=== PATIENT | male | born 2000 | race Two or more races ===

== ENCOUNTER 2021-04-21 00:03 | Emergency (ER) | payer SELFPAY ==
[~2021-04-21] VITALS: Ht 185.4 cm; Wt 62.1 kg
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
[2021-04-21] MEDS ORDERED: OLANZAPINE 10 MG VIAL IM ONE ×2 (00:17→00:30)
[2021-04-21] MEDS ORDERED: diphenhydrAMINE HCL 50 MG/ML VIAL ONE (00:17)
--- NOTE | 2021-04-21 00:25 | NUR ---
TECHNICAL INSTRUCTOR COURSE DEVELOPER AT [facility] FOR BLOOD DRAW
[2021-04-21] MEDS ORDERED: diphenhydrAMINE HCL 50 MG/ML VIAL IM ONE (00:30)
[2021-04-21 00:37] LABS: BASOPHILS # (AUTO) 0.1 /CMM (0.0-0.2); BASOPHILS % (AUTO) 0.6 % (0.0-2.0); EOSINOPHILS % (AUTO) 0.1 % (0.0-6.0); HEMATOCRIT 45 % (39-51); LYMPHOCYTES # (AUTO) 1.7 /CMM (0.8-4.8); LYMPHOCYTES % (AUTO) 13.3 % (20.0-44.0); MEAN CORPUSCULAR HGB CONC 34 g/dl (31.0-36.0); MEAN CORPUSCULAR VOLUME 91 fL (80-96); NEUTROPHILS # (AUTO) 9.7 /CMM (1.8-8.9); PLATELET COUNT (AUTO) 308 /CMM (150-450); RED BLOOD CELL COUNT(AUTO) 4.92 MIL/uL (4.5-6.0); WHITE BLOOD COUNT (AUTO) 12.4 K/uL (4.3-11.0)
[2021-04-21 00:47] LABS: CALCIUM, SERUM 9.2 mg/dL (8.5-10.1); CARBON DIOXIDE 23 mmol/L (21-32); CHLORIDE 103 mmol/L (98-107); CREATININE 0.7 mg/dL (0.6-1.3); GLUCOSE 89 mg/dL (74-106); POTASSIUM 3.6 mmol/L (3.5-5.1); SODIUM SERUM 138 mmol/L (136-145); UREA NITROGEN, BLOOD 17 mg/dL (7-18)
[2021-04-21 00:53] LABS: ALANINE AMINOTRANSFERASE 30 U/L (12-78); ALBUMIN 4.1 g/dL (3.4-5.0); ALKALINE PHOSPHATASE 103 U/L (46-116); ASPARTATE AMINOTRANSFERASE 37 U/L (15-37); BILIRUBIN,DIRECT 0.2 mg/dL (0.0-0.2); BILIRUBIN,TOTAL 0.8 mg/dL (0.2-1.0); TOTAL PROTEIN, SERUM 7.6 g/dL (6.4-8.2)
[2021-04-21 00:57] LABS: ACETAMINOPHEN < 0 ug/ml (10-30); ALCOHOL, BLOOD < 0 mg/dL (0-0)
--- NOTE | 2021-04-21 01:22 | NUR ---
PT UNABLE TO PROVIDE URINE SAMPLE AT THIS TIME. MD MCCONNELL
[2021-04-21] MEDS ORDERED: OLAN10TA3 PO (04:53)
--- NOTE | 2021-04-21 05:20 | NUR ---
PT AWAKE. [id number]. AMBULATORY WITH STEADY GAIT. DENIES SI/HI. AWARE
[2021-04-21 05:32] VITALS: BP 125/76
--- NOTE | 2021-04-21 05:32 | NUR ---
Patient discharged to home in stable condition. Written and verbal after care instructions given. Patient verbalizes understanding of instruction. Pt ambulated out of ED. VSS.
== END 2021-04-21 05:32 | disposition home or self-care (01) ==
LOC: ER 00:05
DX: R46.1 Bizarre personal appearance (principal)
CPT/HCPCS: 36415; 80048; 80076; 80143; 80320; 85025; 96372 ×2; 99284; J1200; J3490; G0480

== ENCOUNTER 2021-08-20 08:16 | Emergency (ER) | payer SELFPAY ==
[~2021-08-20] VITALS: Ht 185.4 cm; Wt 63.0 kg
[~2021-08-20 08:16] MED LIST: OLAN10TA3 PO
--- NOTE | 2021-08-20 08:26 | NUR ---
phlebatomist at the bedside
--- NOTE | 2021-08-20 08:26 | NUR ---
The patient is [id number] feeling suicidal. No active plan at this time. The patient wants voluntary psych admit. Denies HI. The patient is alert and oriented x4. Denies pain. In room air and denies SOB. Respiration regular and unlabored. Will continue to monitor the patient.
--- NOTE | 2021-08-20 08:26 | NUR ---
covid swab done and sent to the lab
[2021-08-20 08:33] LABS: BASOPHILS # (AUTO) 0.1 K/uL (0.0-0.2); BASOPHILS % (AUTO) 0.6 % (0.0-2.0); EOSINOPHILS % (AUTO) 1.1 % (0.0-6.0); HEMATOCRIT 47 % (39-51); HEMOGLOBIN 15.7 g/dL (13.5-17.5); LYMPHOCYTES # (AUTO) 2.2 K/uL (0.8-4.8); LYMPHOCYTES % (AUTO) 22.1 % (20.0-44.0); MEAN CORPUSCULAR HGB CONC 33 g/dl (31.0-36.0); MEAN CORPUSCULAR VOLUME 89 fL (80-96); MONOCYTES # (AUTO) 0.7 K/uL (0.1-1.30); MONOCYTES % (AUTO) 7.3 % (2.0-12.0); NEUTROPHILS # (AUTO) 6.8 K/uL (1.8-8.9); NEUTROPHILS % (AUTO) 68.9 % (43.0-81.0); PLATELET COUNT (AUTO) 341 K/uL (150-450); RED BLOOD CELL COUNT(AUTO) 5.34 MIL/uL (4.5-6.0); WHITE BLOOD COUNT (AUTO) 9.9 K/uL (4.3-11.0)
--- NOTE | 2021-08-20 08:35 | NUR ---
urine collected and sent to the lab
[2021-08-20 08:40] LABS: CALCIUM, SERUM 8.6 mg/dL (8.5-10.1); CARBON DIOXIDE 31 mmol/L (21-32); CHLORIDE 103 mmol/L (98-107); CREATININE 0.6 mg/dL (0.6-1.3); GLUCOSE 75 mg/dL (74-106); POTASSIUM 3.6 mmol/L (3.5-5.1); SODIUM SERUM 140 mmol/L (136-145); UREA NITROGEN, BLOOD 14 mg/dL (7-18)
[2021-08-20 08:46] LABS: ALANINE AMINOTRANSFERASE 38 U/L (12-78); ALBUMIN 3.8 g/dL (3.4-5.0); ALKALINE PHOSPHATASE 129 U/L (46-116); ASPARTATE AMINOTRANSFERASE 32 U/L (15-37); BILIRUBIN,DIRECT 0.1 mg/dL (0.0-0.2); BILIRUBIN,TOTAL 0.3 mg/dL (0.2-1.0); TOTAL PROTEIN, SERUM 7.9 g/dL (6.4-8.2)
[2021-08-20 08:47] LABS: ACETAMINOPHEN 0 ug/ml (10-30); ALCOHOL, BLOOD < 3 mg/dL (0-0); BILIRUBIN,URINE Negative (NEGATIVE); COLOR,URINE YELLOW (YELLOW); LEUKOCYTE ESTERASE ,URINE Negative (NEGATIVE); NITRITE, URINE Negative (NEGATIVE); PROTEIN,URINE Negative (NEGATIVE); UGLUCOSE Negative (NEGATIVE); UROBILINOGEN,URINE 0.2 EU/dL (0.2)
[2021-08-20 10:02] VITALS: BP 135/77
--- NOTE | 2021-08-20 10:45 | NUR ---
Note [email or web address] in EDM - 08/20/21 at 1319 by JIGNESH pt requesting to be discharge. states "i want to go and not suicidal" advised to talk to ed provider first before he leaves but does not want to. pt is not on any psych hold. medically cleared. left with no discharge/aci.
--- NOTE | 2021-08-20 12:45 | NUR ---
pt requesting to be discharge. states "i want to go and not suicidal" advised to talk to ed provider first before he leaves but does not want to. pt is not on any psych hold. medically cleared. left with no discharge/aci.
== END 2021-08-20 12:45 | disposition left against medical advice (07) ==
LOC: ER 08:25
DX: R45.851 Suicidal ideations (principal); F15.10 Other stimulant abuse, uncomplicated; Z59.00 Homelessness unspecified; F32.A Depression, unspecified; Z88.8 Allergy status to other drugs, medicaments and biological substances; F19.10 Other psychoactive substance abuse, uncomplicated; Z53.29 Procedure and treatment not carried out because of patient's decision for other reasons; Z20.822 Contact with and (suspected) exposure to COVID-19
CPT/HCPCS: 36415; 80048; 80076; 80143; 80307; 80320; 81003; 85025; 87426; 99285; C9803; G0480